=== PATIENT | male | born 1980 | race Caucasian/White ===

== ENCOUNTER 2021-01-06 14:57 | Outpatient (REF) | payer OTHER, SELFPAY ==
[2021-01-06 18:47] LABS: Alanine Aminotransferase 45 U/L (0-40); Albumin Level 4.5 g/dL (3.5-5.0); Alkaline Phosphatase 69 U/L (39-117); Anion Gap 13 (12-20); Aspartate Amino Transferase 26 U/L (5-37); Bilirubin Total 0.9 mg/dL (0.0-1.0); Blood Urea Nitrogen 15 mg/dL (9-16); C Reactive Protein 0.36 mg/dL (< or = 0.50); Calcium 9.2 mg/dL (8.4-10.2); Carbon Dioxide 28 mmol/L (22-29); Chloride 103 mmol/L (96-108); Erythrocyte Sedimentation Rate 5 MM/HR (0-15); Estimated Glomerular Filt Rate > 60; Glucose Random 97 mg/dL (60-115); Potassium 4.3 mmol/L (3.3-5.1); Sodium 140 mmol/L (135-145); Total Protein 7.2 g/dL (6.5-8.0)
[2021-01-06 18:51] LABS: Free T4 (Free Thyroxine) 1.06 ng/dL (0.71-1.85); Vitamin D 25-OH Total 25.9 ng/mL (>30)
[2021-01-06 18:54] LABS: Rheumatoid Factor < 15.0 IU/mL (<15.0)
[2021-01-06 19:11] LABS: Folate 10.9 ng/mL (> or = 4.0); Vitamin B12 778 pg/mL (200-900)
[2021-01-08 05:36] LABS: Lyme Abs Screen <0.90 index
[2021-01-09 17:22] LABS: Anti Nuclear Antibody Screen NEGATIVE (NEGATIVE)
[2021-01-09 19:41] LABS: A. Phagocytophilum Ab IgG <1:64 (<1:64); A. Phagocytophilum Ab IgM <1:20 (<1:20); E. Chaffeensis Ab IgG <1:64 (<1:64); E. Chaffeensis Ab IgM <1:20 (<1:20)
[2021-01-10 17:31] LABS: EBV-VCA IgG Ab >750.00 U/mL; EBV-VCA IgM Ab <36.00 U/mL
[2021-01-11 14:42] LABS: Babesia IgG <1:64 titer (<1:64); Babesia IgM <1:20 titer (<1:20)
[2021-01-12 16:12] LABS: Testosterone, Free 38.5 pg/mL (35.0-155.0); Testosterone, Total 179 ng/dL (250-1100)
== END 2021-01-06 14:58 | disposition home or self-care (01) ==
LOC: HO.MANLDS 14:57
PROVIDERS: PCP Internal Medicine; Visit Provider Physician Assistant
DX: R53.83 Other fatigue (principal); L65.9 Nonscarring hair loss, unspecified
CPT/HCPCS: 36415; 80053; 82306; 82607; 82746; 84402; 84403; 84439; 84443; 85652; 86038; 86039; 86140; 86431; 86618; 86664; 86665; 86666; 86753

== ENCOUNTER 2021-02-14 14:19 | Outpatient (REF) | payer OTHER, SELFPAY ==
[2021-02-19 13:51] LABS: Testosterone, Total 226 ng/dL (250-1100)
== END 2021-02-14 14:20 | disposition home or self-care (01) ==
LOC: HO.MANLDS 14:19
PROVIDERS: Absent Provider Physician Assistant; PCP Internal Medicine; Visit Provider Physician Assistant
DX: R79.89 Other specified abnormal findings of blood chemistry (principal)
CPT/HCPCS: 36415; 84403

== ENCOUNTER 2024-03-20 14:00 | Outpatient (RCR) | payer OTHER, SELFPAY | END 2024-08-25 12:52 | disposition home or self-care (01) | LOC: HO.PTWFD 14:00 | PROVIDERS: PCP Family Medicine; Visit Provider Family Medicine | DX: M54.16 Radiculopathy, lumbar region (principal) | CPT/HCPCS: 97014; 97110; 97140; 97161; 97164; 97530; 97535 ==